=== PATIENT | male | born 2000 | race Caucasian/White ===

== ENCOUNTER 2022-05-08 10:11 | Emergency (ER) | payer BC | END 2022-05-08 11:54 | disposition home or self-care (01) | LOC: ER1 10:11 | DX: U07.1 COVID-19 (principal); F17.200 Nicotine dependence, unspecified, uncomplicated | CPT/HCPCS: 0241U; 99283 ==

== ENCOUNTER 2022-06-18 11:45 | Emergency (ER) | payer SELFPAY | END 2022-06-18 12:40 | disposition home or self-care (01) | LOC: ER1 11:45 | DX: S31.110A Laceration without foreign body of abdominal wall, right upper quadrant without penetration into peritoneal cavity, initial encounter (principal); J45.909 Unspecified asthma, uncomplicated; Z23 Encounter for immunization; W26.0XXA Contact with knife, initial encounter | CPT/HCPCS: 12001; 90471; 90714; 99283 ==